=== PATIENT | male | born 2000 | race Caucasian/White ===

== ENCOUNTER 2022-07-08 16:20 | Emergency (ER) | payer OTHER ==
[~2022-07-08 16:20] MED LIST: BUPR-50 PO
[2022-07-08] MEDS ORDERED: EPINEPHrine 1:10,000 [1 MG/10 ML] SYRINGE IVP ONE (16:21)
== END 2022-07-08 18:14 ==
LOC: EDBD 16:20 → EMS 16:20
DX: I46.9 Cardiac arrest, cause unspecified (principal)
CPT/HCPCS: 99285; 92950; J0171